=== PATIENT | female | born 1965 | race Caucasian/White ===

== ENCOUNTER 2023-04-10 14:26 | Outpatient (CLI) | payer OTHER ==
--- NOTE | 2023-04-10 20:36 | XRAY Report ---
PROCEDURE: Foot 3 View LT INDICATIONS: FOOT PAIN TECHNIQUE: 3 views of the foot were acquired. COMPARISON: None. FINDINGS: Bones: No acute fractures or dislocations. No suspicious bony lesions. Small plantar enthesophyte. Mild to moderate degenerative changes in the navicular-1st cuneiform articulation, the tarsometatarsa l joints, 1st metatarsophalangeal joint, and interphalangeal joints of the toes. Mild superior sublux ation at the 1st tarsometatarsal joint and mild widening of the 1st intermetatarsal distance is suspi cious for a prior Lisfranc injury. Soft tissues: No suspicious soft tissue calcifications. IMPRESSION: 1.Mild subluxation of the 1st tarsometatarsal joint and mild widening of the 1st intermetatarsal dist ance is suspicious for a prior Lisfranc ligament injury. 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 Reviewed by: Daniel Gibson MD on 04/10/2023 8:34 PM PDT Approved by: Daniel Gibson MD on 04/10/2023 8:34 PM PDT Station ID: [id number]
== END 2023-04-10 14:27 | disposition home or self-care (01) ==
LOC: DI 14:26
PROVIDERS: ATTEND Podiatrist
DX: S93.322A Subluxation of tarsometatarsal joint of left foot, initial encounter (principal); M19.072 Primary osteoarthritis, left ankle and foot